=== PATIENT | male | born 1980 | race Two or more races ===

== ENCOUNTER 2019-02-11 11:19 | Emergency (ER) | payer SELFPAY ==
[2019-02-11 11:54] VITALS: TEMP 98.8; BMI 21.6
--- NOTE | 2019-02-11 12:00 | PDOC ---
History of Present Illness - General Chief Complaint: Chest Pain Stated Complaint: CHEST PRESSURE Time Seen by Provider: 02/11/19 11:25 - History of Present Illness Initial Comments: 02/11/19 11:55 38 M with h/o panic disorder presents to ED with a panic attack. Pt states that he saw someone he knew today that he believed was involved in the of his brother, and he subsequently began to have palpitations, shortness of breath, and chest pressure. Pt states that he felt his heart pounding very hard. The episode lasted less than an hour before resolving spontaneously. Pt no longer has any symptoms. Pt notes that he has been suffering from panic attacks for several years. He states that his panic attacks are usually triggered by travelling somewhere new or doing something he is unfamiliar with. Past History - Past Medical History Allergies/Adverse Reactions: Allergies Allergy/AdvReac Type Severity Reaction Status Date / Time No Known Allergies Allergy Unverified 02/11/19 12:28 Home Medications: Ambulatory Orders NK [No Known Home Medication] 02/11/19 COPD: No Psychiatric Problems: Yes (PANIC ATTACKS) - Psycho Social/Smoking Cessation Hx Smoking History: Current every day smoker Have you smoked in the past 12 months: Yes Number of Cigarettes Smoked Daily: 5 Information on smoking cessation initiated: Yes Hx Alcohol Use: No Review of Systems - Review of Systems Comments:: 02/11/19 11:57 GENERAL/CONSTITUTIONAL: No fever or chills. No weakness. HEAD, EYES, EARS, NOSE AND THROAT: No change in vision. No ear pain or discharge. No sore throat. CARDIOVASCULAR: + chest pressure, + palpitations, + shortness of breath, no loss of consciousness RESPIRATORY: No cough, wheezing, or hemoptysis. GASTROINTESTINAL: No nausea, vomiting, diarrhea or constipation. GENITOURINARY: No dysuria, frequency, or change in urination. MUSCULOSKELETAL: No joint or muscle swelling or pain. No neck or back pain. SKIN: No rash NEUROLOGIC: No vertigo, no change in strength/sensation. ENDOCRINE: No increased thirst. No abnormal weight change. HEMATOLOGIC/LYMPHATIC: No anemia, easy bleeding, or history of blood clots. ALLERGIC/IMMUNOLOGIC: No hives or skin allergy. *Physical Exam - Vital Signs Last Vital Signs Temp Pulse Resp BP Pulse Ox 98.8 F 82 18 124/65 100 02/11/19 11:19 02/11/19 11:19 02/11/19 11:19 02/11/19 11:19 02/11/19 11:19 - Physical Exam 02/11/19 11:58 "GENERAL: Awake, alert, and fully oriented, in no acute distress. HEAD: No signs of trauma EYES: PERRLA, EOMI, sclera anicteric, conjunctiva clear ENT: Auricles normal inspection, hearing grossly normal, nares patent, oropharynx clear without exudates. Moist mucosa NECK: Nontender, no stepoffs, Normal ROM, supple, no lymphadenopathy, JVD, or masses LUNGS: Breath sounds equal, clear to auscultation bilaterally. No wheezes, and no crackles HEART: Regular rate and rhythm, normal S1 and S2, no murmurs, rubs or gallops ABDOMEN: Soft, nontender, normoactive bowel sounds. No guarding, no rebound. No masses EXTREMITIES: Normal range of motion, no edema. No clubbing or cyanosis. No cords, erythema, or tenderness NEUROLOGICAL: Cranial nerves II through XII intact. 5/5 strength and sensation in all extremities, Normal speech, normal gait, normal cerebellar function SKIN: Warm, Dry, normal turgor, no rashes or lesions noted. Heart Score/ECG Review - History History: Slightly suspicious - Electrocardiogram EKG: Normal - Age Age: </= 45 - Risk Factors Based on the list above the patient has:: No risk factors known - Troponin Troponin: </= normal limit - Score Heart Score - Total: 0 - ECG Impressions Comment:: 02/11/19 11:59 NSR, no NIDHI/STDs, no TWIs, axis wnl, intervals wnl ED Treatment Course - LABORATORY CBC & Chemistry Diagram: 02/11/19 12:00 02/11/19 12:00 - RADIOLOGY Radiology Studies Ordered: Category Date Time Status CHEST PA & LAT [RAD] Stat Radiology 02/11/19 11:50 Ordered Medical Decision Making - Medical Decision Making 02/11/19 11:59 38 M with chest pressure, palpitations, and SOB after stressful event. Likely panic attack. Pt asymptomatic now. EKG completely normal. - Labs, trop, TSH - CXR 02/11/19 12:37 Trop negative Pt with leukocytosis WBC 14 but no infectious symptoms CXR clear TSH pending Discharge - Discharge Information Problems reviewed: Yes Clinical Impression/Diagnosis: Panic attack Condition: Stable Disposition: HOME - Follow up/Referral - Patient Discharge Instructions Patient Printed Discharge Instructions: DI for Atypical Chest Pain, DI for Panic Disorder Additional Instructions: You must follow up with your primary doctor within 1 week for further treatment of your panic attacks. You may need a referral to a psychiatrist. If you experience any chest pain, shortness of breath, or any other concerning symptoms, return to the ER immediately. - Post Discharge Activity
[2019-02-11 12:14] LABS: BASO % 1.2 % (0-2.0); EOS % 0.6 % (0-4.5); HEMATOCRIT 45.2 % (35.4-49); HEMOGLOBIN 14.9 GM/dl (11.7-16.9); LYMPH % 16.4 % (8-40); MEAN CELL VOLUME 93.8 fl (80-96); MONO % 5.6 % (3.8-10.2); NEUT % 76.2 % (42.8-82.8); PLATELET COUNT 246 K/MM3 (134-434); RBC 4.82 M/mm3 (4.00-5.60); RDW 12.2 % (11.9-15.9); WHITE BLOOD COUNT 14.7 K/mm3 (4.0-10.8)
[2019-02-11 12:24] LABS: ALBUMIN 4.2 g/dl (3.4-5.0); BILIRUBIN,TOTAL 0.5 mg/dl (0.2-1); CALCIUM 8.9 mg/dl (8.5-10); CREATININE 0.6 mg/dl (0.55-1.3); POTASSIUM 3.9 mmol/L (3.5-5.1); TOT PROT 6.8 g/dl (6.4-8.2)
[2019-02-11 14:18] VITALS: BP 116/75; PULSE 79
--- NOTE | 2019-02-11 23:25 | EKG ---
Test Reason : Blood Pressure : / mmHG Vent. Rate : 085 BPM Atrial Rate : 085 BPM P-R Int : 134 ms QRS Dur : 086 ms QT Int : 334 ms P-R-T Axes : 064 038 021 degrees QTc Int : 397 ms NORMAL SINUS RHYTHM NORMAL ECG NO PREVIOUS ECGS AVAILABLE Confirmed by KENA BONNER MD ([id number]) on 02/11/2019 11:24:36 PM Referred By: JAXON SPENCER Confirmed By:KENA BONNER MD
== END 2019-02-11 14:20 | disposition home or self-care (01) ==
LOC: FER 11:19
DX: J09.X2 Influenza due to identified novel influenza A virus with other respiratory manifestations (principal)
CPT/HCPCS: 36415; 71046-TC-FY; 80053; 82550; 84443; 84484; 85025; 93005; 99285-25

== ENCOUNTER 2020-05-30 11:05 | Emergency (ER) | payer OTHER ==
[2020-05-30 11:17] VITALS: BP 124/77; PULSE 70; TEMP 97.8; BMI 21.2
== END 2020-05-30 12:41 | disposition home or self-care (01) ==
LOC: FER 11:05
DX: R07.81 Pleurodynia (principal)
CPT/HCPCS: 71045-TC-FY; 99284-25